=== PATIENT | female | born 1975 | race Hispanic/Latino ===

== ENCOUNTER 2023-01-13 11:43 | Emergency (ER) | payer SELFPAY ==
[2023-01-13 12:09] VITALS: BP 158/72; PULSE 82; RESP 18; TEMP 36.7; O2SAT 100
--- NOTE | 2023-01-13 14:29 | ED.SKABFB ---
HPI - Skin/Abscess/Foreign Bdy General Chief complaint: Skin/Abscess/Foreign Body Stated complaint: right breast knot since sat PCP sent to ED Time Seen by Provider: 01/13/23 13:02 Source: patient Mode of arrival: ambulatory Limitations: language barrier (patient's is interpreting, which she prefers) History of Present Illness HPI narrative: This is a 47 year old female that presents to the ER for breast mass that she has noted over the last 6 days. Reports the area is tender to palpation. Reports she was prompted to be seen in the ER for a mammogram. Denies fever or erythema. Related Data Allergies Allergy/AdvReac Type Severity Reaction Status Date / Time No Known Allergies Allergy Unverified 09/17/19 11:32 Review of Systems Review of Systems: CONSTITUTIONAL: Denies fever BREAST: Reports lump. Denies nipple discharge All systems reviewed & are unremarkable except as noted in HPI and below PMFSH Past Medical History Medical History (Updated 01/13/23 @ 16:44 by Danielle Cochran PA-C) No active medical problems Social History Social History (Updated 01/13/23 @ 16:44 by Danielle Cochran PA-C) Smoking status: Never smoker Exam Narrative: GENERAL: Well-appearing, well-nourished, and in no acute distress. HEAD: Normocephalic, atraumatic. EYES: EOMI. CHEST: No respiratory distress. HEART: Regular rate EXTREMITIES: Normal range of motion. No edema. No axillary lymphadenopathy SKIN: Warm, dry, no rash. NEURO: No focal deficits. Alert and oriented x3. PSYCH: Normal mood and affect BREAST: Small lump noted sub areolar that is tender to palpation. No erythema or warmth Course Course Emergency Course: Patient and family were updated that I am unable to get a mammogram in the ER. I am also unable to order one outpatient. I did provide her with resources to obtain a mammogram Vital Signs Vital signs: Vital Signs Temperature 98.1 F 01/13/23 12:09 Pulse Rate 82 01/13/23 12:09 Respiratory Rate 18 01/13/23 12:09 Blood Pressure 158/72 H 01/13/23 12:09 Pulse Oximetry 100 01/13/23 12:09 Oxygen Delivery Room Air 01/13/23 12:09 Temperature 98.1 F 01/13/23 12:09 Pulse Rate 82 01/13/23 12:09 Respiratory Rate 18 01/13/23 12:09 Blood Pressure 158/72 H 01/13/23 12:09 Pulse Oximetry 100 01/13/23 12:09 Oxygen Delivery Room Air 01/13/23 12:09 MDM - Skin/Abscess/Foreign Bdy MDM Narrative Medical decision making narrative: Patient presents to the emergency department for a breast mass that she has noted over the last 6 days. Reports the area is tender. She is afebrile. There is no redness or warmth of the area. Reports she has not had a mammogram in many years. I am unable to obtain a mammogram in the ER. I tried to order one outpatient and I was unable to. Patient is to follow-up with her primary provider for referral for an outpatient mammogram. She was also instructed that she may present to [facility] and get a mammogram without a referral for an annual screening exam. She was given warnings to return to the ER Differential Diagnosis Differential diagnosis: Likely other (Breast abscess, breast cancer, benign breast mass) Critical Care Time Critical Care Time Critical Care Time: No Discharge Plan Discharge Clinical Impression: Breast mass, right Qualifiers: Breast mass location: subareolar Qualified Code(s): N63.41 - Unspecified lump in right breast, subareolar Patient Disposition: Home, Self-Care Condition: Stable Instructions: Breast Mass (ED) Additional Instructions: Return to the emergency department if you experience fever, chest pain, shortness of breath, redness and swelling of your breast, or any other symptoms that are concerning to you. Follow up with your primary care doctor to get your mammogram scheduled You may also present to [facility] as you can get an annual screening exam without a referral Patient Jimy
[2023-01-13 16:53] VITALS: BP 149/72; PULSE 76; RESP 18; O2SAT 98
== END 2023-01-13 16:55 | disposition home or self-care (01) ==
PROVIDERS: Emergency Provider Physician Assistant; PCP Registered Nurse
DX: N63.41 Unspecified lump in right breast, subareolar (principal)
CPT/HCPCS: 99281